=== PATIENT | female | born 1975 | race Caucasian/White ===

== ENCOUNTER 2018-06-25 20:20 | Emergency (ER) | payer MEDICARE, OTHER ==
[2018-06-25] MEDS ORDERED: IBUPROFEN 600 MG TAB PO STA (21:43)
[2018-06-25] MEDS ORDERED: LIDOCAINE 1% INJ 10MG/ML (20 ML MDV) SQ ONE (21:43)
[2018-06-25] MEDS ORDERED: AMOXIC-POT CLAV 875MG STARTER 2 EACH TABLET PO STA (21:43)
--- NOTE | 2018-06-25 21:55 | ED ---
Animal Bite HPI - General Chief Complaint: Animal Bite Stated Complaint: Dog bite Time Seen by Provider: 06/25/18 21:25 Source: patient, family Mode of arrival: ambulatory Limitations: physical limitation - History of Present Illness Initial Comments: 42-year-old female patient presents to the emergency department today for evaluation of dog bite to the right cheek. Family member states the patient was bitten the face by a lab around 6:30 this evening. States that they presented here immediately for further evaluation. Patient has not taken anything for pain or discomfort. Bleeding is under control. They deny any other injuries. They're unsure when her last tetanus was updated but they do believe it is within the timeframe. She denies any difficulty opening or closing her mouth. Denies any significant pain. Patient does have a history of Down syndrome and does not provide much information. Patient denies any headache, neck pain, back pain, chest pain, shortness of breath, dizziness, weakness, abdominal pain, nausea, vomiting, or difficulties with bowel movements or urination. - Related Data Previous Rx's Medication Instructions Recorded Amoxic-Pot Clav 875-125Mg 1 tab PO Q12HR #14 tablet 06/25/18 [Augmentin 875-125] Allergies Allergy/AdvReac Type Severity Reaction Status Date / Time azithromycin Allergy Unknown Verified 06/25/18 20:45 Childhood Review of Systems ROS Statement: Those systems with pertinent positive or pertinent negative responses have been documented in the HPI. ROS Other: All systems not noted in ROS Statement are negative. Past Medical History Past Medical History: Dementia Additional Past Medical History / Comment(s): OCD, downs syndrome History of Any Multi-Drug Resistant Organisms: None Reported Past Surgical History: Ear Surgery Past Psychological History: Bipolar, Schizophrenia Smoking Status: Never smoker Past Alcohol Use History: None Reported Past Drug Use History: None Reported General Exam Limitations: physical limitation General appearance: alert, in no apparent distress, other (This is a well- developed, well-nourished adult female patient in no acute distress. Vital signs are presentation 98.1F, pulse 75, respirations 16, blood pressure 111/72 , pulse ox 96% on room air.) ENT exam: Present: other (Patient has irregular church measuring approximately 3 cm to the right cheek. No current bleeding. Mucosal surfaces intact with no evidence of through and through.) Respiratory exam: Present: normal lung sounds bilaterally. Absent: respiratory distress, wheezes, rales, rhonchi, stridor Cardiovascular Exam: Present: regular rate, normal rhythm, normal heart sounds. Absent: systolic murmur, diastolic murmur, rubs, gallop, clicks Neurological exam: Present: alert, oriented X3, CN II-XII intact Psychiatric exam: Present: normal affect, normal mood Skin exam: Present: warm, dry, intact, normal color. Absent: rash Course Vital Signs 06/25/18 06/25/18 20:34 23:37 Temperature 98.1 F 98.0 F Pulse Rate 75 65 Respiratory 16 20 Rate Blood Pressure 111/72 113/61 O2 Sat by Pulse 96 95 Oximetry Procedures - Laceration Laceration #1 Indication: laceration Site: face Size (cm): 3 Description: irregular Depth: simple, single layer Anesthetic Used: lidocaine 1% Anesthesia Technique: local infiltration Amount (mls): 5 Pre-repair: irrigated extensively Type of Sutures: nylon Size of Sutures: 5-0 Number of Sutures: 2 Technique: simple, interrupted Patient Tolerated Procedure: well, no complications Medical Decision Making - Medical Decision Making 42-year-old female patient presents to the emergency department today for evaluation of dog bite to the right cheek. Physical examination did reveal 3 cm irregular laceration to the soft tissue of the right cheek. There is no mucosal involvement. Did irrigate the laceration extensively, did insert two sutures, this did have good approximation. Patient was started on Augmentin. Instructed to follow-up with the primary care physician for recheck in 1-2 days. Instructed to return in 3-5 days to have sutures removed. They're educated regarding wound care. Return parameters discussed in detail. They verbalize understanding and agreed with this plan Disposition Clinical Impression: Dog bite of right cheek Disposition: HOME SELF-CARE Condition: Good Instructions: Animal Bite (ED) Additional Instructions: Keep wound clean and dry. Cleanse twice daily with warm water and antibacterial soap. Return in 3-5 days to have the stitches taken out. Monitor for signs or symptoms of infection including but not limited to redness, swelling, drainage of pus, fever, or chills. Complete antibiotic prescription in full. Follow-up with the primary care physician for recheck in 1-2 days. Return immediately for any new, worsening, or concerning symptoms. Prescriptions: Amoxic-Pot Clav 875-125Mg [Augmentin 875-125] 1 tab PO Q12HR #14 tablet Is patient prescribed a controlled substance at d/c from ED?: No Referrals: Pool Toro DO [Primary Care Provider] - 1-2 days Time of Disposition: 23:08
[2018-06-25] MEDS ORDERED: DIPH,PERTUS(ACELL)TETVAC-LF 0.5 ML VIAL IM ONE (23:08)
[2018-06-25 23:38] VITALS: BP 113/61; PULSE 65; RESP 20; TEMP 98
== END 2018-06-25 23:50 | disposition home or self-care (01) ==
LOC: EC 20:20
DX: S01.411A Laceration without foreign body of right cheek and temporomandibular area, initial encounter (principal); Q90.9 Down syndrome, unspecified; Z88.1 Allergy status to other antibiotic agents; Z23 Encounter for immunization; W54.0XXA Bitten by dog, initial encounter; Y92.009 Unspecified place in unspecified non-institutional (private) residence as the place of occurrence of the external cause
CPT/HCPCS: 90715; 99283; 12013; 90471; J2001